=== PATIENT | female | born 1965 | race Caucasian/White ===

== ENCOUNTER 2017-12-30 13:18 | Emergency (ER) | payer OTHER ==
[2017-12-30] MEDS ORDERED: Morphine 10 MG/ML VIAL ONE (13:45)
[2017-12-30] MEDS ORDERED: Pantoprazole 40 MG VIAL ONE (13:46)
[2017-12-30] MEDS ORDERED: Ondansetron HCl/PF 4 MG/2 ML Vial ONE (13:46)
[2017-12-30 14:31] LABS: ALT (SGPT) 21 U/L (8-55); AST (SGOT) 33 U/L (5-34); Albumin 3.7 g/dL (3.5-5.0); Alkaline Phosphatase 115 U/L (40-150); Anion Gap 18 mmol/L (10-20); BUN (Urea Nitrogen) 9 mg/dL (9.8-20.1); Bilirubin, Total Less than 0.2 mg/dL (0.2-1.2); Calc. Creatinine Clearance 0 mL/min (70-130); Calcium 8.7 mg/dL (7.8-10.44); Carbon Dioxide 21 mmol/L (22-29); Chloride 103 mmol/L (98-107); Estimated GFR-MDRD 80; Globulin 3.1 g/dL (2.4-3.5); Glucose 171 mg/dL (70-105); Lipase 27 U/L (8-78); Potassium 3.5 mmol/L (3.5-5.1); Protein, Total 6.8 g/dL (6.0-8.3); Sodium 138 mmol/L (136-145)
[2017-12-30 15:03] LABS: Band 1 % (5-11); Hemoglobin 11.5 g/dL (12.0-16.0); Lymphocytes 24 % (21-51); MDiff Complete? YES; Mean Corpuscular HGB CONC 31.5 g/dL (32.0-36.0); Mean Corpuscular Hemoglobin 31.1 pg (27.0-31.0); Mean Corpuscular Volume 98.7 fL (78.0-98.0); Mean Platelet Volume 8.4 fL (7.4-10.4); Monocytes 5 % (0-10); Neutrophil 70 % (42-75); Platelet Count 245 thou/uL (130-400); RBC Distribution Width 13.8 % (11.5-14.5); Red Blood Cell (RBC) Count 3.69 mill/uL (4.20-5.40); White Blood Cell (WBC) Count 8.6 thou/uL (4.8-10.8)
[2017-12-30] MEDS ORDERED: Morphine 4 MG/ML Carpuject ONE (15:35)
== END 2017-12-30 15:57 | disposition home or self-care (01) ==
LOC: BURERS 13:18
DX: R11.2 Nausea with vomiting, unspecified (principal); R10.11 Right upper quadrant pain; K21.9 Gastro-esophageal reflux disease without esophagitis; E11.9 Type 2 diabetes mellitus without complications; E03.9 Hypothyroidism, unspecified; I10 Essential (primary) hypertension; F41.9 Anxiety disorder, unspecified; Z79.899 Other long term (current) drug therapy
CPT/HCPCS: 80053; 83690; 85025; 96361; 96374; 96375; 96376; C9113; J2270; J2405

== ENCOUNTER 2018-01-08 19:29 | Emergency (ER) | payer OTHER ==
[2018-01-08] MEDS ORDERED: Ondansetron HCl/PF 4 MG/2 ML Vial ONE (20:26)
[2018-01-08] MEDS ORDERED: Morphine 4 MG/ML Carpuject ONE ×3 (20:27→22:46)
[2018-01-08 20:44] LABS: ALT (SGPT) 40 U/L (8-55); AST (SGOT) 22 U/L (5-34); Albumin 3.2 g/dL (3.5-5.0); Alkaline Phosphatase 87 U/L (40-150); Anion Gap 13 mmol/L (10-20); BUN (Urea Nitrogen) 8 mg/dL (9.8-20.1); Bilirubin, Total 0.3 mg/dL (0.2-1.2); Calc. Creatinine Clearance 0 mL/min (70-130); Calcium 8.2 mg/dL (7.8-10.44); Carbon Dioxide 22 mmol/L (22-29); Chloride 107 mmol/L (98-107); Estimated GFR-MDRD Greater than 90; Globulin 2.7 g/dL (2.4-3.5); Glucose 186 mg/dL (70-105); Lipase 5 U/L (8-78); Protein, Total 5.9 g/dL (6.0-8.3); Sodium 138 mmol/L (136-145)
[2018-01-08 20:45] LABS: Hemoglobin 10.9 g/dL (12.0-16.0); Mean Corpuscular HGB CONC 33.4 g/dL (32.0-36.0); Mean Corpuscular Hemoglobin 32.1 pg (27.0-31.0); Mean Corpuscular Volume 96.3 fL (78.0-98.0); Mean Platelet Volume 8.2 fL (7.4-10.4); Platelet Count 242 thou/uL (130-400); RBC Distribution Width 14.3 % (11.5-14.5); White Blood Cell (WBC) Count 5.8 thou/uL (4.8-10.8)
[2018-01-08 21:04] LABS: Eosinophils 4 % (0-10); Lymphocytes 52 % (21-51); MDiff Complete? YES; Monocytes 5 % (0-10); Neutrophil 35 % (42-75); PLT Morphology Comment Appears Adequate; RBC Morphology Normal
--- NOTE | 2018-01-08 21:43 | CT ---
CT OF THE CERVICAL SPINE 01/08/[address] of the cervical spine was performed for evaluation of numbness and paresthesias on the righ t side. There is an extensive history of cancer including the colon, thyroid and liver. Axial slices were acquired, then coronal and sagittal reconstructions were done. There is reversal of the normal cervical lordosis. Degenerative disc disease is seen at C4-C5, C5-C6, and C6-C7. Prominent anterior osteophytes are seen at these levels. No spinal mass was seen. No mass es were evident in the surrounding soft tissues. Clips are seen at the site of a prior thyroid resect ion. Findings by level follow: C1-C2: No acute findings. C2-C3: No acute findings. C3-C4: No acute findings. C4-C5: There appears to be a disc osteophyte complex in the right paracentral region which could pote ntially cause encroachment on the exiting nerve root. There is moderate right foraminal narrowing as well. The AP diameter of the spinal canal at this level narrows to about 9 mm. C5-C6: Moderate bilateral foraminal narrowing. C6-C7: Mild bilateral foraminal narrowing. C7-T1: No acute findings. T1-T2: No acute findings. Lung apices are clear. IMPRESSION: Multilevel degenerative changes with a right sided disc osteophyte complex at C4-C5. POS: HOME
--- NOTE | 2018-01-08 21:47 | CT ---
CT OF THE BRAIN WITH AND WITHOUT CONTRAST 01/08/18 Comparison is made with the prior study dated 01/09/14. The scan was initially done without contrast and then followed by IV contrasted study. This was done due to the history of cancer and extensive paresthesias that the patient is having. The ventricles are normal in size with no shift. No intracranial bleeding, mass, or sign of acute str alfonso was found. Once IV contrast was given, there were no areas of definite pathological enhancement. MRI would be more sensitive to seeing smaller metastatic deposits. The floor of the left middle cranial fossa has several lucency areas in it. Looking back at a 2013 s can, these were present then and are not all that different over time. Thus their importance is disco unted. The visible paranasal sinuses are clear. IMPRESSION: No acute intracranial finding. POS: HOME
[2018-01-08] MEDS ORDERED: Promethazine HCl 25 MG/ML VIAL ONE (21:49)
== END 2018-01-08 22:56 | disposition home or self-care (01) ==
LOC: BURERS 19:29
DX: R10.11 Right upper quadrant pain (principal); C22.9 Malignant neoplasm of liver, not specified as primary or secondary; E86.0 Dehydration; D64.9 Anemia, unspecified; R20.2 Paresthesia of skin; K21.9 Gastro-esophageal reflux disease without esophagitis; E11.9 Type 2 diabetes mellitus without complications; E03.9 Hypothyroidism, unspecified; I10 Essential (primary) hypertension; F41.9 Anxiety disorder, unspecified; Z79.899 Other long term (current) drug therapy
CPT/HCPCS: 70450; 72125; 80053; 83605; 83690; 85025; 94760; 96361; 96374; 96375; 96376; J2270; J2405; J2550

== ENCOUNTER 2018-12-02 15:30 | Emergency (ER) | payer OTHER ==
[2018-12-02] MEDS ORDERED: Cyclobenzaprine 10 MG TAB ONE (16:01)
[2018-12-02] MEDS ORDERED: HYDROmorphone 0.5 MG/0.5 ML SYRINGE ONE ×2 (16:01→17:25)
[2018-12-02 16:19] LABS: #Basophils 0.1 thou/uL (0.0-0.2); #Lymphocytes 2.5 thou/uL (1.20-3.40); #Monocytes 0.3 thou/uL (0.11-0.59); #Neutrophils 3.8 thou/uL (1.40-6.50); %Basophils 1.4 % (0.0-1.0); %Eosinophils 0.1 % (0.0-10.0); %Lymphocytes 36.8 % (21.0-51.0); %Neutrophils 56.7 % (42.0-75.0); Mean Corpuscular HGB CONC 32.3 g/dL (32.0-36.0); Mean Corpuscular Hemoglobin 31.2 pg (27.0-31.0); Mean Corpuscular Volume 96.7 fL (78.0-98.0); Mean Platelet Volume 7.4 fL (7.4-10.4); Platelet Count 261 thou/uL (130-400); RBC Distribution Width 12.8 % (11.5-14.5); Red Blood Cell (RBC) Count 4.16 mill/uL (4.20-5.40); White Blood Cell (WBC) Count 6.7 thou/uL (4.8-10.8)
[2018-12-02 16:34] LABS: ALT (SGPT) 33 U/L (8-55); AST (SGOT) 20 U/L (5-34); Albumin 4.5 g/dL (3.5-5.0); Alkaline Phosphatase 116 U/L (40-150); Anion Gap 19 mmol/L (10-20); BUN (Urea Nitrogen) 6 mg/dL (9.8-20.1); Bilirubin, Total 0.6 mg/dL (0.2-1.2); Calc. Creatinine Clearance 0 mL/min (70-130); Carbon Dioxide 21 mmol/L (22-29); Chloride 104 mmol/L (98-107); Estimated GFR-MDRD 77; Globulin 3.2 g/dL (2.4-3.5); Glucose 173 mg/dL (70-105); Potassium 3.6 mmol/L (3.5-5.1); Protein, Total 7.7 g/dL (6.0-8.3); Sodium 140 mmol/L (136-145)
--- NOTE | 2018-12-02 17:28 | CT ---
CT CHEST AND ABDOMEN AND PELVIS WITH CONTRAST: 12/02/2018 HISTORY: There is a history of carcinoid. COMPARISON: Prior CT of abdomen and pelvis dated 12/07/2017. I understand she has had more recent scans elsewher e. TECHNIQUE: Spiral CT of the chest, abdomen, and pelvis was done following trauma. FINDINGS: THORAX: The mediastinum shows no mass or adenopathy. There is no sign of aortic injury. There is n o pericardial effusion. No pneumothorax, pleural effusion, or acute parenchymal infiltrate is seen. There is a tiny, 4 mm, noncalcified nodule at the base of the right upper lobe, peripherally. It ma y or may not be significant. The lungs are otherwise clear. ABDOMEN AND PELVIS: There are multiple masses of varying sizes scattered throughout the liver, the l argest measuring about 1.7 cm in size. This is a new finding since the 2018 scan and likely represen ts metastatic disease. The spleen is normal in size. The common bile duct is large but consistent w ith the prior history of a cholecystectomy. Numerous sutures are seen in the upper abdomen from prio r surgery. The pancreas is difficult to fully assess, but no gross pancreatic masses were appreciate d. The adrenal glands and kidneys are unremarkable. The abdominal aorta shows no aneurysm. Some air-fluid levels are seen in some loops of bowel, but there is no sign of jordon obstruction at t he moment. A few of the distal small bowel loops range up to 2.7 cm in diameter. The colon is not d ilated in any way. There is no free air or free fluid. CT of the pelvis shows some distention of the urinary bladder, but no pelvic masses, fluid collection s, or inflammatory changes are seen. No fractures of the thoracolumbar spine are apparent. The bony pelvis and visible portions of the hi ps appear intact. No rib fractures are seen. Subtle fractures might be missed on this exam and woul d be better picked up with bone scanning. There are some degenerative changes in the upper thoracic spine. Slight anterolisthesis of L4 on L5 appears to be due to facet changes. A degenerative disk i s present at L5-S1. IMPRESSION: 1. No acute traumatic findings in the chest, abdomen, or pelvis. 2. Multiple hepatic masses, a new finding since 2018. Metastatic disease is probable. 3. 4 mm non-calcified nodule, right lung. Significance indeterminate. Should be followed given fin dings in the liver. Findings discussed with Dr. Mejias at 1642 hours on 12/02/2018. CODE CR POS: HOME
== END 2018-12-02 18:00 | disposition home or self-care (01) ==
LOC: BURERS 15:30
DX: M54.5 Low back pain (principal); M54.6 Pain in thoracic spine; C22.8 Malignant neoplasm of liver, primary, unspecified as to type; K21.9 Gastro-esophageal reflux disease without esophagitis; E11.9 Type 2 diabetes mellitus without complications; E03.9 Hypothyroidism, unspecified; I10 Essential (primary) hypertension; F41.9 Anxiety disorder, unspecified; Z79.899 Other long term (current) drug therapy
CPT/HCPCS: 71260; 74177; 80053; 85025; 96361; 96374; 96376; A4353; J1170

== ENCOUNTER 2021-05-03 21:29 | Emergency (ER) | payer OTHER ==
[2021-05-03 23:07] LABS: #Lymphocytes 1.5 thou/uL (1.20-3.40); #Monocytes 0.7 thou/uL (0.11-0.59); #Neutrophils 8.1 thou/uL (1.40-6.50); %Basophils 0.4 % (0.0-1.0); %Eosinophils 0.2 % (0.0-10.0); %Lymphocytes 14.3 % (21.0-51.0); %Monocytes 6.5 % (0.0-10.0); %Neutrophils 78.6 % (42.0-75.0); Hemoglobin 8.9 g/dL (12.0-16.0); Mean Corpuscular HGB CONC 31.3 g/dL (32.0-36.0); Mean Corpuscular Hemoglobin 31.9 pg (27.0-31.0); Platelet Count 422 thou/uL (130-400); RBC Distribution Width 13.6 % (11.5-14.5); Red Blood Cell (RBC) Count 2.78 mill/uL (4.20-5.40); White Blood Cell (WBC) Count 10.2 thou/uL (4.8-10.8)
[2021-05-03] MEDS ORDERED: Dextrose 50% Abboject 50 ML SYRINGE ONE (23:07)
[2021-05-03 23:16] LABS: ALT (SGPT) 29 U/L (8-55); AST (SGOT) 30 U/L (5-34); Albumin 2.7 g/dL (3.5-5.0); Alkaline Phosphatase 147 U/L (40-110); Anion Gap 20 mmol/L (10-20); BUN (Urea Nitrogen) 11 mg/dL (9.8-20.1); Bilirubin, Total 0.6 mg/dL (0.2-1.2); Calc. Creatinine Clearance 0 mL/min (70-130); Calcium 8.1 mg/dL (7.8-10.44); Carbon Dioxide 21 mmol/L (22-29); Chloride 103 mmol/L (98-107); Globulin 3.2 g/dL (2.4-3.5); Potassium 4.2 mmol/L (3.5-5.1); Protein, Total 5.9 g/dL (6.0-8.3); Sodium 140 mmol/L (136-145)
[2021-05-03 23:38] LABS: Glucose 56 mg/dL (70-105)
== END 2021-05-04 00:35 | disposition home or self-care (01) ==
LOC: BURERS 21:29 → EDBD 21:29 → BURERS 05-04 00:35
DX: E11.65 Type 2 diabetes mellitus with hyperglycemia (principal); E03.9 Hypothyroidism, unspecified; I10 Essential (primary) hypertension; Z79.899 Other long term (current) drug therapy
CPT/HCPCS: 36416; 80053; 85025; 96374

== ENCOUNTER 2021-06-06 08:48 | Emergency (ER) | payer OTHER ==
[2021-06-06 10:22] LABS: #Lymphocytes 0.8 thou/uL (1.20-3.40); #Monocytes 0.2 thou/uL (0.11-0.59); #Neutrophils 5.6 thou/uL (1.40-6.50); %Basophils 0.3 % (0.0-1.0); %Eosinophils 0.1 % (0.0-10.0); %Lymphocytes 11.4 % (21.0-51.0); %Monocytes 2.9 % (0.0-10.0); %Neutrophils 85.4 % (42.0-75.0); Mean Corpuscular HGB CONC 31.2 g/dL (32.0-36.0); Mean Corpuscular Hemoglobin 30.4 pg (27.0-31.0); Mean Corpuscular Volume 97.3 fL (78.0-98.0); Mean Platelet Volume 6.3 fL (7.4-10.4); Platelet Count 306 thou/uL (130-400); RBC Distribution Width 14.6 % (11.5-14.5); Red Blood Cell (RBC) Count 2.96 mill/uL (4.20-5.40); White Blood Cell (WBC) Count 6.6 thou/uL (4.8-10.8)
[2021-06-06 10:37] LABS: ALT (SGPT) 12 U/L (8-55); AST (SGOT) 19 U/L (5-34); Albumin 2.1 g/dL (3.5-5.0); Alkaline Phosphatase 91 U/L (40-110); Anion Gap 15 mmol/L (10-20); BUN (Urea Nitrogen) 13 mg/dL (9.8-20.1); Bilirubin, Total 0.3 mg/dL (0.2-1.2); Calc. Creatinine Clearance 0 mL/min (70-130); Calcium 7.4 mg/dL (7.8-10.44); Carbon Dioxide 25 mmol/L (22-29); Chloride 103 mmol/L (98-107); Globulin 3.2 g/dL (2.4-3.5); Glucose 69 mg/dL (70-105); Potassium 3.7 mmol/L (3.5-5.1); Protein, Total 5.3 g/dL (6.0-8.3); Sodium 139 mmol/L (136-145)
[2021-06-06 10:50] LABS: Lipase Less than 4 U/L (8-78)
[2021-06-06] MEDS ORDERED: Ondansetron PF 4 MG/2 ML Vial ONE (11:06)
[2021-06-06] MEDS ORDERED: Morphine 4 MG/ML VIAL ONE (11:06)
[2021-06-06 12:45] LABS: SARS-CoV-2 NAA Rapid Test Not Detected (NotDetected)
[2021-06-06 13:11] LABS: Bilirubin Moderate (Negative); Blood, Urine Negative (Negative); Clarity Cloudy (Clear); Glucose, Urine (Dipstick) 100 mg/dL (Negative); Ketone, Urine 40 mg/dL (Negative); Leukocyte Negative (Negative); Nitrite Negative (Negative); Protein, Urine (Dipstick) Negative (Neg-Trace); Specific Gravity, Urine 1.028 (1.002-1.036); Urobilinogen 0.2 mg/dL (Less than 2); pH, Urine 5.5 (5.0-9.0)
== END 2021-06-06 14:30 | disposition short-term general hospital (02) ==
LOC: BURERS 08:48
DX: E11.649 Type 2 diabetes mellitus with hypoglycemia without coma (principal); E86.0 Dehydration; R11.2 Nausea with vomiting, unspecified; Z20.822 Contact with and (suspected) exposure to COVID-19; Z79.899 Other long term (current) drug therapy; Z79.891 Long term (current) use of opiate analgesic; K21.9 Gastro-esophageal reflux disease without esophagitis; E11.9 Type 2 diabetes mellitus without complications; E03.9 Hypothyroidism, unspecified; I10 Essential (primary) hypertension
CPT/HCPCS: 36416; 36556; 70450; 71045; 80053; 81003; 82140; 83605; 83690; 84443; 84484; 85025; 93005; 96374; 96375; J2270; J2405; U0002